=== PATIENT | male | born 2000 | race Caucasian/White ===

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

== ENCOUNTER 2022-02-05 05:50 | Emergency (ER) | payer BC ==
[~2022-02-05] VITALS: Ht 182.9 cm; Wt 68.0 kg
--- NOTE | 2022-02-05 06:03 | ED Syncope ---
General Chief Complaint: Dizziness/Syncope Stated Complaint: SYNCOPE Source of Information: Patient Exam Limitations: No Limitations History of Present Illness Date Seen by Provider: Feb 05, 2022 Time Seen by Provider: 05:53 Initial Comments 21-year-old male with no medical comorbidities presents via EMS after syncopal episode at work. He states he is felt unwell lately nasal congestion, cough and sore throat. No fevers or chills. No sick contacts. He was walking at work and felt lightheaded, dizzy and then had a brief syncopal episode. He did not have any immunizations prior to the event. Continues to have some mild ringing in his ears. He did not have any chest pain or shortness of breath. His blood sugar was in the 90s in route to the hospital for EMS. He feels back to normal at present outside of some mild tinnitus. Allergies and Home Medications Patient Home Medication List Home Medication List Reviewed: Yes Review of Systems Constitutional: no symptoms reported EENTM: ear pain, nose congestion, throat pain Respiratory: cough Cardiovascular: no symptoms reported Gastrointestinal: no symptoms reported Genitourinary: no symptoms reported Musculoskeletal: no symptoms reported Skin: no symptoms reported Psychiatric/Neurological: No Symptoms Reported Past [id number] Hx Patient Social History Tobacco Use?: Yes Tobacco type used: Cigarettes Use of E-Cig and/or Vaping dev: Yes E-Cig or Vaping type used: Marijuana Substance use?: No Alcohol Use?: No Past Medical History Surgery/Hospitalization HX: none Family Medical History Reviewed Nursing Family Hx No Pertinent Family Hx Physical Exam Vital Signs Vital Signs - First Documented Capillary Refill : Height, Weight, BMI Height: '" Weight: lbs. oz. kg; BMI Method: General Appearance: No Apparent Distress, WD/WN HEENT: PERRL/EOMI, TMs Normal, Normal ENT Inspection, Pharynx Normal Neck: Full Range of Motion, Non Tender, Supple Cardiovascular: Regular Rate, Rhythm, No Edema, No Murmur, Normal Peripheral Pulses Respiratory: Chest Non Tender, Lungs Clear, Normal Breath Sounds, No Accessory Muscle Use, No Respiratory Distress Gastrointestinal: Normal Bowel Sounds, No Organomegaly, No Pulsatile Mass, Non Tender, Soft Extremities: Normal Capillary Refill, Normal Inspection, Non Tender, No Calf Tenderness Neurologic/Psychiatric: Alert, Oriented x3, No Motor/Sensory Deficits, coating operator II- XII Norm as Tested Cranial Nerves: Normal Hearing, Normal Speech, PERRL Coordination/Gait: Normal Finger to Nose Motor/Sensory: No Motor Deficit, No Sensory Deficit Skin: Normal Color, Warm/Dry Lymphatic: No Adenopathy Progress/Results/Core Measures Results/Orders My Orders Orders - MUKESH JAEGER DO Ekg Tracing (02/05/22 05:58) Vital Signs/I&O 02/05/22 02/05/22 05:54 05:54 Temp 36.2 Pulse 69 Resp 22 B/P (MAP) 138/82 (100) Pulse Ox 95 O2 Delivery Room Air Room Air EKG : Comment Sinus rhythm at 63 bpm. Normal intervals. Normal axis. No ST or T wave abnormalities. No ectopy. No STEMI. No evidence for LVH Departure Communication (Admissions) Patient is hemodynamically stable with normal neurologic exam. He feels back to normal baseline at present. No risk factors for serious cause of syncope. Normal blood glucose, normal EKG. Discharged in stable condition with supportive care and close follow-up. Impression Primary Impression: Syncope Qualified Codes: R55 - Syncope and collapse Disposition: 01 HOME, SELF-CARE Condition: Stable Departure-Patient Inst. Referrals: NO,LOCAL PHYSICIAN (PCP/Family) Primary Care Physician Patient Instructions: Syncope (Fainting) (DC) Add. Discharge Instructions: Increase your fluids at home, rest. Return to the emergency department for any chest pain or shortness of breath. All discharge instructions reviewed with patient and/or family. Voiced understanding. MUKESH JAEGER DO Feb 05, 2022 06:03
[2022-02-05 06:25] VITALS: BP 135/78
== END 2022-02-05 06:24 | disposition home or self-care (01) ==
LOC: EDUNIT# 05:50 → ER 05:51
DX: R55 Syncope and collapse (principal); F17.210 Nicotine dependence, cigarettes, uncomplicated; Z28.310 Unvaccinated for COVID-19
CPT/HCPCS: 93005